=== PATIENT | female | born 1960 | race African-American/Black ===

== ENCOUNTER 2020-09-21 13:40 | Emergency (ER) | payer BC ==
[~2020-09-21] VITALS: Ht 152.4 cm; Wt 90.0 kg
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
[2020-09-21 14:35] VITALS: BP 152/79
== END 2020-09-21 15:02 | disposition home or self-care (01) ==
LOC: ER 13:40
DX: S00.83XA Contusion of other part of head, initial encounter (principal); S00.03XA Contusion of scalp, initial encounter; Y04.0XXA Assault by unarmed brawl or fight, initial encounter; Y93.89 Activity, other specified; Y92.89 Other specified places as the place of occurrence of the external cause; Y99.8 Other external cause status
CPT/HCPCS: 99283